=== PATIENT | male | born 1995 | race Caucasian/White ===

== ENCOUNTER 2020-05-07 05:58 | Day surgery (SDC) | payer OTHER, SELFPAY ==
[2020-05-07] VITALS (9 sets, daily range): BP systolic 108–142; BP diastolic 49–84; PULSE 64–90; RESP 16–18; TEMP 36.3–37.3; O2SAT 95–99; BMI 36.2
[2020-05-07] MEDS: Lactated Ringers 1,000 ML 100 ML IV ×2 (06:47→09:00)
--- NOTE | 2020-05-07 07:40 | RAD_ITS ---
STUDY: X-RAY - LEFT FOOT CLINICAL: ORIF Lisfranc joint. TECHNIQUE: 8 intraoperative of the foot. COMPARISON: None. FINDINGS: There are orthopedic screws transfixing the medial and middle cuneiforms and medial cuneiform and second metatarsal. Electronically Signed: Ricardo Goel MD at 9:22 EDT Tel , Service support , RAD/Foot min 3 Views
--- NOTE | 2020-05-07 09:09 | DCINST_ITS ---
Discharge Diet: Light diet - advance as tolerated Discharge Activity: May Not Drive, May Not Shower, Use Walker, Use Crutches Weight Bearing Status: No weight bearing Keep extremity elevated above heart level: Left Leg Additional Activity Instructions:: 1. Keep dressing to left lower extremity clean, dry, intact. Do not get dressing wet. Do not remove dressing. Protect dressing when bathing with a cast protector or plastic bag and tape. I recommend sponge bathing at this time. 2. Ice around left knee 30 minutes every hour as needed for pain. 3. Elevate left foot above level of heart as often as possible until further instructed. 4. No walking/standing/placing any weight on left foot. Use crutches/walker for assistance. 5. Begin taking doxycycline (antibiotic) tomorrow, May 08, 2020 1 pill twice a day as instructed on the bottle. 6. Begin taking aspirin 81 mg tomorrow, May 08, 2020 1 pill twice a day. 7. Begin taking Percocet (pain medication) today, May 07, 2020 as needed. 7. Follow-up with Dr. Quezada in 1 week as previously scheduled. Call your doctor if your incision/area has: Sudden Increased Bleeding, Increased Pain/ Swelling Call your doctor if you observe: Fever of 101 or Higher, Coldness, Increased Pain, Shortness of breath, Chest pain, Increased palpitations (irregular heartbeat), Calf discomfort, Uncontrolled pain Cleanse incision/area with: Keep Dressing Clean & Dry Allergies/Adverse Reactions: Allergies azithromycin Allergy (Verified 05/07/20 06:25) Rash Medications to take at Discharge Fexofenadine/Pseudoephedrine [Samantha-D 12 Hour Tablet] 1 each PO DAILY PRN PRN 05/04/20 Oxycodone-Acetaminophen 5-325 1 tablet PO Q6H PRN PRN 05/04/20 Primary Care Physician: Inderjit Figueredo MD [Primary Care Provider] - Test Results: Test results from this visit will be discussed in further detail at your follow- up appointment, if applicable. Please Follow Up With: Davis Quezada DPM When: in 1 week as previously scheduled
--- NOTE | 2020-05-07 09:12 | PCM.OPRPT ---
Problem List (1) Lisfranc dislocation Status: Acute Qualifiers: Encounter type: initial encounter Laterality: left Qualified Code(s): S93.325A - Dislocation of tarsometatarsal joint of left foot, initial encounter Report of Operation Date of Procedure: 05/07/20 Pre-Operative Diagnosis: 1. Left foot tarsometatarsal joint dislocation. Post-Operative Diagnosis: Same as preoperative Surgery/Procedure Performed:: Open reduction with internal fixation of left Lisfranc tarsometatarsal joint dislocation Description of Surgical Findings:: Consistent with diagnosis. Reduction of deformity achieved and held with internal fixation. occupational health professional: Assist,RN First Type of Anesthesia:: General/Regional - With a popliteal block given to the left lower extremity preoperatively Anesthesiologist: Gerald Pan Special Medications: 2 g of Ancef given preoperatively Specimen's removed: None Drains: None Estimated Blood Loss (mL): 10 Description of Procedure: Hemostasis: Anatomic dissection Materials: #1. Mokane 4.0 x 40 mm partially-threaded cannulated screw. 2. Mokane 4.0 x 30 mm partially-threaded cannulated screw. 3. Size 3-0 Vicryl. 4. Size 3-0 nylon. Injectables: None Complications: None Condition: Stable Indications: Patient is a 25-year-old male who suffered a left foot injury on April 16, 2020 while at work. During the day, he stepped in a hole and twisted his left foot. Patient felt immediate pain after the injury. He states that his left foot twisted while the other part of his foot remained back. Due to the pain and inability to bear weight, he presented to the emergency department for further evaluation. X-rays were taken. He initially followed up with Dr. Jatin Quezada on 04/17/20. An MRI of the left foot was ordered at that time. Patient completed the MRI on April 27, and initially saw me in the office on April 29, 2020. I reviewed the results with the patient, which showed a complete Lisfranc ligamentous injury along with nondisplaced fractures of the lateral cuneiform and cuboid. I discussed all these terms in detail over the nature of his condition. I discussed conservative and surgical interventions with the patient. Due to the injury that was present and his active lifestyle, I recommended surgical intervention. I discussed the risks, benefits, possible outcomes, possible complications of the surgical intervention. These included but not limited to delayed or nonhealing wounds, delayed or nonhealing ligaments, DVT, infection, decreased function of limb, continued pain, damage to surrounding structures, loss of limb, loss of life. All the patient's questions were answered to his satisfaction and all of his concerns were addressed. No guarantees were made to the outcome of the procedure. Patient understood all aspects of the procedure, and was agreeable to proceed with surgical intervention. Surgical intervention was planned for today, May 07, 2020. Operative report: Before the patient was brought to the operating room, the surgical procedure was discussed once again in detail along with the risks and benefits. All the patient questions were answered to satisfaction and all of his concerns were addressed. No guarantees were made as to the outcome of the procedure. Patient understood all aspects of the procedure, and was agreeable to proceed with the surgical intervention. Before the patient was brought to the operating room, the anesthesiologist administered a popliteal block to the left lower extremity. Patient was then brought to the operating room placed on the operating table in supine position. After timeout, general anesthesia was obtained and anesthesia to control the airway. 2 g of Ancef was given preoperatively. The left foot, ankle, leg were then scrubbed, prepped, draped in the usual sterile manner. This time, attention was then directed to the dorsal aspect of the left foot. Radiographic evaluation was used to determine the lateral aspect of the base of the second metatarsal, second tarsometatarsal joint, first tarsometatarsal joint, and medial aspect of the medial cuneiform. These were then all marked on the patient. At this time, the Mokane Yamilet system for the Lisfranc ligamentous reapproximation was applied to the left foot. A stab incision was made at the lateral aspect of the base of the second metatarsal so the jig could be appropriately positioned. Once adequate positioning was had and confirmed on x-ray, this jig was tightened. Reduction of the Lisfranc ligamentous injury and dislocation was noted. This was confirmed upon radiographic evaluation. Next, the K wire for the jig was inserted in standard fashion. Confirmation of placement of the K wire was had on radiographic evaluation. Once adequate positioning was had, a stab incision was made at the level of the K wire and skin juncture. Blunt dissection was continued down deep to the level of the bone. Next, this K wire was then measured and the Sujata 4.0 x 40 mm partially threaded cannulated screw was placed over the K wire and inserted. Of note during insertion of the screw was the adequate compression of the Lisfranc joint. Once adequate compression was had, the jig along with the K wire was removed. Radiograph evaluation was then performed. The screw was noted to hold the Lisfranc ligament in the corrected reduced position. The screw was noted to neither be too long or too short. Attention was then directed the medial aspect of the medial cuneiform. At this time, a K wire was inserted from the medial aspect of the medial cuneiform through the intercuneiform joint into the intermediate cuneiforms. Confirmation of this K wire was noted on radiographic evaluation. Once adequate positioning of this K wire was had, a a stab incision was made at the level of the K wire and skin juncture, and blunt dissection was continued down deep to the level of the bone. This was then measured and at this time a Sujata 4.0 x 30 mm partially-threaded cannulated screw was placed over the K wire and inserted. Of note during insertion of the screw was adequate compression of the intercuneiform joint. Furthermore, no shifting of the joint occurred during insertion of the screw. Once the screw was fully inserted, the K wire was then removed. Radiograph evaluation was then performed. The screws were noted to not to be too long or too short and were noted to hold the Lisfranc ligamentous complex in the correct the reduced position. Live radiographic evaluation was performed for stress abduction and abduction. No widening of the Lisfranc ligamentous complex was noted. Each surgical site was irrigated with copious amounts of irrisept and normal sterile saline. The subcutaneous tissues of the surgical incisions were reapproximated and coapted utilizing 3-0 Vicryl. The skin was reapproximated coapted utilizing 3-0 nylon in a simple interrupted horizontal mattress fashion. Neurovascular status was assessed at the end the procedure and deemed intact the left lower extremity. The surgical site was then dressed with Betadine soaked gauze, and a dry sterile dressing setting of 4 x 4 gauze, ABD pads, wrapped with Kerlix. The left foot and ankle were then wrapped in Cresencio bandage. Next, a stockinette was placed over the left lower extremity. Cast padding was wrapped from the metatarsal heads extending proximally to level just distal to the tibial tuberosity. A posterior splint was fashioned to the left lower extremity and was adhered to the left lower extremity utilizing Cresencio bandages. Neurovascular status was assessed at the end the application and deemed intact left lower extremity. Patient tolerated anesthesia procedure well and was transported to the PACU with vital signs stable neurovascular status intact the left lower extremity. After period of postoperative monitoring, patient be discharged home with written and oral instructions for wound care and follow-up. - Complications None - Admit VTE Documentation VTE Present on Admission: No - Aspirin 81 mg twice a day to begin May 08, 2020 for DVT prophylaxis VTE Mechan Device Prophylaxis: SCD's
--- NOTE | 2020-05-07 09:20 | RAD_ITS ---
STUDY: X-RAY - LEFT FOOT CLINICAL: Male, 25 years old. s/p ORIF LEFT Lisfranc -- Portable TECHNIQUE: 3 view(s) of the foot. COMPARISON: None. FINDINGS: Normal talus, calcaneus, and tarsal bones. Status post Lisfranc joint arthrodesis with the 2 screws. Normal metatarsi. Normal metatarsophalangeal joint of the great toe. Normal tibial and fibular sesamoid bones. Normal interphalangeal joint of the great toe. Normal phalanges of the great toe. Normal second through fifth metatarsophalangeal joints. Normal interphalangeal joints and phalanges of the lesser toes. Fiberglas cast a pure soft tissue and bony detail. RAD/Foot min 3 Views IMPRESSION: Status post Lisfranc joint arthrodesis with 2 screws. Electronically Signed: Ishmael Mccoy MD at 13:42 EDT Tel , Service support ,
== END 2020-05-07 11:35 | disposition home or self-care (01) ==
LOC: SDC 06:00 → AC 06:01
PROVIDERS: PCP Family Medicine; Referring Provider Podiatrist Foot & Ankle Surgery; Visit Provider Podiatrist Foot & Ankle Surgery
DX: S92.225A Nondisplaced fracture of lateral cuneiform of left foot, initial encounter for closed fracture (principal); S93.325A Dislocation of tarsometatarsal joint of left foot, initial encounter; S92.215A Nondisplaced fracture of cuboid bone of left foot, initial encounter for closed fracture; S93.692A Other sprain of left foot, initial encounter; W17.2XXA Fall into hole, initial encounter; Y93.9 Activity, unspecified; Y92.89 Other specified places as the place of occurrence of the external cause; Y99.0 Civilian activity done for income or pay; Z20.822 Contact with and (suspected) exposure to COVID-19
CPT/HCPCS: 01480; 28465; 28615; 64447; 64450; 73630; 76000; 87426; C1713; C9803; J7120; J2405

== ENCOUNTER 2024-01-28 11:19 | Emergency (ER) | payer OTHER, SELFPAY ==
[2024-01-28 11:19] VITALS: BP 167/95; PULSE 97; RESP 16; TEMP 36.6; O2SAT 97; BMI 36.8
--- NOTE | 2024-01-28 11:34 | EDS_ITS ---
HPI <YESENIA Barrow - Last Filed: 01/28/24 12:36> History of Present Illness Chief Complaint: Rash Narrative Narrative: Patient presenting today with concerns for a rash to his scalp that started on Monday that has been progressively worsening and began spreading to his face over the last day or so. He went to urgent care on Monday and they diagnosed him with folliculitis and started him on Keflex which she has been taking without improvement. He denies exposure to known allergens, new medications, new detergents/soaps/body products. He has felt well otherwise and denies any fevers or chills. He denies any chronic medical conditions. PFSH <YESENIA Barrow - Last Filed: 01/28/24 12:36> [facility] Home Medications ?Medication ?Instructions ?Recorded ?Last Taken ?Type Oxycodone-Acetaminophen 5-325 1 tablet PO Q6H PRN PRN Pain 1-10 05/04/20 Unknown History Or Fever fexofenadine 60 mg-pseudoephedrine 1 each PO DAILY PRN PRN Allergies 05/04/20 Unknown History ER 120 mg tablet,ext.release,12 hr prednisone 20 mg tablet 40 mg (2 x 20 mg) PO DAILY 5 days 01/28/24 Unknown Rx #10 tabs sulfamethoxazole 800 1 tab PO BID #14 tabs 01/28/24 Unknown Rx mg-trimethoprim 160 mg tablet (Bactrim DS) Allergy/AdvReac Type Severity Reaction Status Date / Time azithromycin Allergy Rash Verified 01/28/24 11:21 Social History Smoking Status: Current every day smoker tobacco type: cigarettes ROS <YESENIA Barrow - Last Filed: 01/28/24 12:36> ROS ED Constitutional Constitutional ED: Denies chills or fever(s) Cardiovascular Cardiovascular: Denies chest pain Respiratory/Chest Respiratory/Chest: Denies dyspnea Gastrointestinal Gastrointestinal: Denies abdominal pain, nausea or vomiting Musculoskeletal Musculoskeletal: Denies arthralgias or myalgias Integumentary Reports rash Neurologic Neurologic: Denies weakness Allergic/Immunologic Allergic/Immunologic ED: Denies mouth swelling or tongue swelling EXAM <YESENIA Barrow - Last Filed: 01/28/24 12:36> Physical Exam Const Vital Signs: 01/28/24 11:19 Temperature 98 F Temperature Source Oral Pulse Rate 97 Respiratory Rate 16 Blood Pressure 167/95 H Blood Pressure Mean 119 Pulse Ox 97 Oxygen Delivery Method Room Air Positive well nourished, well developed and no apparent distress General Appearance ED: well developed HEENT Reports normocephalic and head/scalp atraumatic HEENT Narrative: Papular erythematous rash to the face and scalp, especially the left side of the scalp. A few crusting lesions to the scalp. No purulent discharge or fluctuance. Mouth ED: Yes moist mucous membranes normal Eyes PERRL and EOMs intact bilaterally Neck full ROM and supple Chest Wall inspection of chest normal Resp normal respiratory effort and clear to auscultation bilaterally Cardio regular rate and regular rhythm GI soft to palpation, non-tender, non-distended and no masses Back/Spine normal ROM and normal to inspection Extremity normal to inspection and full ROM Neuro oriented x3, CN's II-XII intact bilaterally, moves all extremities, no focal motor deficits and no sensory deficits noted Sensorium / Orientation: awake and alert Psych mental status grossly normal and thought process normal Skin no wounds Skin Narrative: Erythematous papular rash to the face and scalp with 1 small papule to the left arm. <Sergei Reed MD - Last Filed: 01/28/24 13:48> Physical Exam Const Vital Signs: 01/28/24 11:19 Temperature 98 F Temperature Source Oral Pulse Rate 97 Respiratory Rate 16 Blood Pressure 167/95 H Blood Pressure Mean 119 Pulse Ox 97 Oxygen Delivery Method Room Air [facility] <YESENIA Barrow - Last Filed: 01/28/24 12:36> [facility] Narrative Medical decision making narrative: Patient presenting today with a erythematous papular rash to his scalp and face that started on Monday. The rash initially started on his scalp and he went to urgent care and was told this was likely folliculitis and was started on Keflex. It began spreading to his face over the last day or so. His rash is papular with a few erythematous scaly patches on his scalp. No signs of infection or abscess formation. Negative Nikolsky sign. Low suspicion for SJS or TEN. Rash is not consistent with herpes zoster. He does not seem to have any involvement of his chest, abdomen, or back. He has one papule to his left arm. He is nontoxic-appearing and in no acute distress, he is afebrile. We will cover for possible impetigo with Bactrim and we will put him on a burst of prednisone. I have referred him to dermatology I also encouraged that he follow-up with his P CP. Return instructions were discussed and patient discharged in stable condition. <Sergei Reed MD - Last Filed: 01/28/24 13:48> [facility] MDM Narrative Medical decision making narrative: Patient presenting today with a erythematous papular rash to his scalp and face that started on Monday. The rash initially started on his scalp and he went to urgent care and was told this was likely folliculitis and was started on Keflex. It began spreading to his face over the last day or so. His rash is papular with a few erythematous scaly patches on his scalp. No signs of infection or abscess formation. Negative Nikolsky sign. Low suspicion for SJS or TEN. Rash is not consistent with herpes zoster. He does not seem to have any involvement of his chest, abdomen, or back. He has one papule to his left arm. He is nontoxic-appearing and in no acute distress, he is afebrile. We will cover for possible impetigo with Bactrim and we will put him on a burst of prednisone. I have referred him to dermatology I also encouraged that he follow-up with his PCP. Return instructions were discussed and patient discharged in stable condition. Dr. Reed: I have personally performed a face to face assessment of the patient and have reviewed the RITIKA Note. I performed a substantive portion of the visit including all aspects of the following. My rodriguez findings include: History is rash on back of scalp starting Monday, spread to face, more pustule like. No fevers or chills, no nausea or vomiting. Described more as burning sensation. Exam is afebrile. Vital signs noted. Nontoxic-appearing. Dry scaly patches around hairline, multiple pustules on face and forehead, and diffusely throughout scalp with larger patch on occiput with questionable honey crusted lesions. Medical Decision Making: Differential diagnosis includes but not limited to impetigo versus fungal infection versus folliculitis versus seborrhea dermatitis. I have low suspicion for varicella or measles because the history and physical does not support this. The rash did not spread centrally to the periphery. Patient is already on Keflex. With the thought that this may be more impetigo, Bactrim was added. He may also benefit from a steroid burst and was giving a loading dose here in the emergency department and a prescription for burst. He will follow-up with dermatology. Return instructions reviewed. Disposition is discharged in stable condition. Other additions or changes: [None] History & Record Review Discussion w/independent historian: Patient and Family (Mother) Additional record(s) reviewed:: Prior ED visit (Noncontributory to current chief complaint) Discharge Plan Triage Chief Complaint: Rash ED Midlevel Provider: Shani oRdriguez ED Provider: Sergei Reed Dx/Rx/DC Orders Clinical Impression: Rash Instructions: Nonspecific Skin Rash Prescriptions: New sulfamethoxazole-trimethoprim [Bactrim DS] 800-160 mg tablet 1 tab PO BID Qty: 14 0RF prednisone 20 mg tablet 40 mg PO DAILY 5 Days Qty: 10 0RF No Action fexofenadine-pseudoephedrine 1 EACH tablet extended release 12 hr 1 each PO DAILY PRN PRN (Reason: Allergies) Oxycodone-Acetaminophen 5-325 1 tablet PO Q6H PRN PRN (Reason: Pain 1-10 Or Fever) Stand Alone Forms: ED Work / School Excuse Primary Care Provider: Zuhair Mccauley Referrals: Cristal Colbert MD [Non-Staff] - 5-7 Days Inderjit Figueredo MD [Non-Staff] - Activity Restrictions/Additional Instructions: Please follow-up with dermatology, return for any worsening symptoms. Print Language: Mongolian Disposition Disposition: Home, Self Care Discharge Date/Time: 01/28/24 12:17
[2024-01-28] MEDS: predniSONE 20 MG Tablet 40 MG PO (12:07)
== END 2024-01-28 12:17 | disposition home or self-care (01) ==
PROVIDERS: Emergency Provider Emergency Medicine; PCP Family Medicine; Visit Provider Emergency Medicine
DX: R21 Rash and other nonspecific skin eruption (principal)
CPT/HCPCS: 99282